=== PATIENT | male | born 1980 | race Caucasian/White ===

== ENCOUNTER 2021-08-07 17:29 | Emergency (ER) | payer OTHER, MEDICARE ==
[~2021-08-07] VITALS: Ht 175.3 cm; Wt 79.4 kg
== END 2021-08-07 20:05 | disposition home or self-care (01) ==
LOC: ER 17:29
DX: M79.641 Pain in right hand (principal); M79.642 Pain in left hand; B20 Human immunodeficiency virus [HIV] disease; I10 Essential (primary) hypertension; F17.200 Nicotine dependence, unspecified, uncomplicated
CPT/HCPCS: 73130; 96374; 96375; 99283-25